=== PATIENT | male | born 1950 | race Caucasian/White ===

== ENCOUNTER → 2022-04-27 | Outpatient (CLI) | payer MEDICARE, OTHER ==
[~2022-04-27] VITALS: Ht 170.2 cm; Wt 78.5 kg
[~2022-04-27] MED LIST: CITA-77 PO; FINA5TAB4 PO; HYDR25TA4 PO; IODIXANOL 320MG/ML 100ML BTL IV ONE; LISI-716 PO; LUTE15CA PO; OXYC30TA50 PO; TAMS0.4C36 PO; TRIA0.1P17 TOP
== END | disposition home or self-care (01) ==
LOC: CATH 06:52 → EDSTATUS 12:16
PROVIDERS: ATTEND Internal Medicine
DX: R94.39 Abnormal result of other cardiovascular function study (principal); Z53.8 Procedure and treatment not carried out for other reasons; I25.10 Atherosclerotic heart disease of native coronary artery without angina pectoris; I12.9 Hypertensive chronic kidney disease with stage 1 through stage 4 chronic kidney disease, or unspecified chronic kidney disease; N18.30 Chronic kidney disease, stage 3 unspecified; I83.009 Varicose veins of unspecified lower extremity with ulcer of unspecified site; M79.89 Other specified soft tissue disorders; Z87.891 Personal history of nicotine dependence
CPT/HCPCS: J1644; J7030; Q9967; U0003